=== PATIENT | male | born 1965 | race African-American/Black ===

== ENCOUNTER → 2020-06-22 | Outpatient (CLI) | payer OTHER ==
[2015-04-30 15:13] VITALS: BP 131/89
--- NOTE | 2020-06-22 10:14 | KCIC ---
Examination: HIP LEFT 2V WITH PELVIS History: Reason: Chronic Left hip pain, hurts to bear weight. / Spl. Instructions: / History: Comparison/Correlation: None Findings: Frontal view of the pelvis, frontal view of the left hip, and frog leg lateral view left hip were provided. Advanced left hip joint degenerative narrowing and remodeling is present. Significant remodeling of the left hip joint is present. Subchondral degenerative lucencies are present. Mild right hip joint subchondral sclerosis and degenerative change noted. Impression: Advanced left hip joint degenerative remodeling. The right hip joint degenerative subchondral change appears to be present along with mild sclerosis. No acute fracture or bone destruction suspected. Consider further imaging if occult fracture is a concern. Electronically signed by: Juliocesar Gutierrez MD (06/22/2020 10:11 AM) [id number]
== END ==
LOC: KCIC 09:28
PROVIDERS: ATTEND Family Medicine
DX: M16.12 Unilateral primary osteoarthritis, left hip (principal)
CPT/HCPCS: 73502

== ENCOUNTER → 2021-01-02 | Outpatient (CLI) | payer OTHER ==
[2015-04-30 15:13] VITALS: BP 131/89
[~2021-01-02] MED LIST: ATOR10TA60 PO; ELDE1CAP PO; HYDR-2761 PO; MULT-460 PO
[2021-01-02 09:07] LABS: BASO # 0.1 x10^3/uL (0.0-0.2); BASO % 1 % (0-3); EOS # 0.4 x10^3/uL (0.0-0.7); EOS % 6 % (0-3); HEMATOCRIT 44.2 % (39.0-53.0); HEMOGLOBIN 14.6 g/dL (13.0-17.5); LYMPH # 2.3 x10^3/uL (1.0-4.8); LYMPH % 35 % (24-48); MEAN CORPUSCULAR HEMOGLOBIN 30 pg (25-35); MEAN CORPUSCULAR HGB CONC 33 g/dL (31-37); MEAN CORPUSCULAR VOLUME 92 fL (79-100); MONO # 0.4 x10^3/uL (0.0-1.1); MONO % 7 % (0-9); NEUT # 3.4 x10^3/uL (1.8-7.7); NEUT % 52 % (31-73); PLATELET COUNT 191 x10^3/uL (140-400); RED BLOOD COUNT 4.82 x10^6/uL (4.30-5.70); WHITE BLOOD COUNT 6.6 x10^3/uL (4.0-11.0)
[2021-01-02 09:24] LABS: PROTHROMBIN TIME PATIENT 13.7 SEC (11.7-14.0)
[2021-01-02 09:26] LABS: ALBUMIN 3.8 g/dL (3.4-5.0); CALCIUM 8.9 mg/dL (8.5-10.1); CREATININE 1.1 mg/dL (0.7-1.3); GFR 83.8; POTASSIUM 4.7 mmol/L (3.5-5.1)
--- NOTE | 2021-01-02 12:07 | EKG ---
[facility] [address] [place] [address] Test Date: 2021-01-02 Test Time: 12:04:00 Pat Name: SEEMA IFNK Department: Room: Gender: Joiner Helper: JG : 1965 Requested By: PB KIM Order Number: [id number] Reading MD: Ricardo Reno MD Measurements Intervals [place] Rate: 78 P: 90 NE: 130 QRS: 112 QRSD: 86 T: 131 QT: 366 QTc: 421 Interpretive Statements SINUS RHYTHM RAD Electronically Signed On 01-03-2021 10:58:59 CDT by Ricardo Reno MD
--- NOTE | 2021-01-02 13:10 | RAD ---
Two-view chest dated 01/02/2021. Comparison made to 04/29/2015. FINDINGS: Hyperlipidemia. Preoperative evaluation for left hip surgery. FINDINGS: PA and lateral views obtained. Heart and mediastinal contours are stable. Lungs are clear. No consoli dation or pleural effusion. No pneumothorax. Lungs are somewhat hyperinflated. IMPRESSION: No acute findings. Electronically signed by: Jony Landaverde MD (01/02/2021 1:07 PM) [id number]
[2021-01-03 00:08] LABS: HEMOGLOBIN A1C 5.7 % (4.8-5.6)
== END ==
LOC: SURGPAT 13:29
PROVIDERS: ATTEND Orthopaedic Surgery
DX: Z01.818 Encounter for other preprocedural examination (principal); M16.12 Unilateral primary osteoarthritis, left hip; Z96.642 Presence of left artificial hip joint
CPT/HCPCS: 36415; 71046; 80048; 82040; 82306; 83036; 85025; 85610; 85651; 85730; 87641; 93005

== ENCOUNTER → 2021-01-13 | Outpatient (CLI) | payer OTHER ==
[2015-04-30 15:13] VITALS: BP 131/89
== END ==
LOC: LAB 11:01
PROVIDERS: ATTEND Orthopaedic Surgery
DX: Z01.812 Encounter for preprocedural laboratory examination (principal); M16.12 Unilateral primary osteoarthritis, left hip; Z96.642 Presence of left artificial hip joint; Z20.822 Contact with and (suspected) exposure to COVID-19
CPT/HCPCS: U0003; U0005

== ENCOUNTER → 2021-02-21 | Outpatient (CLI) | payer OTHER ==
[2021-01-04 11:17] VITALS: BP 132/86
[2021-02-21 13:06] LABS: BASO % 1 % (0-3); EOS # 0.3 x10^3/uL (0.0-0.7); EOS % 5 % (0-3); HEMATOCRIT 42.4 % (39.0-53.0); HEMOGLOBIN 14.2 g/dL (13.0-17.5); LYMPH # 1.9 x10^3/uL (1.0-4.8); LYMPH % 32 % (24-48); MEAN CORPUSCULAR HEMOGLOBIN 31 pg (25-35); MEAN CORPUSCULAR HGB CONC 34 g/dL (31-37); MEAN CORPUSCULAR VOLUME 92 fL (79-100); MONO # 0.4 x10^3/uL (0.0-1.1); MONO % 7 % (0-9); NEUT # 3.3 x10^3/uL (1.8-7.7); NEUT % 56 % (31-73); PLATELET COUNT 202 x10^3/uL (140-400); RED BLOOD COUNT 4.64 x10^6/uL (4.30-5.70); RED CELL DISTRIBUTION WIDTH 13.4 % (11.5-14.5); WHITE BLOOD COUNT 5.9 x10^3/uL (4.0-11.0)
[2021-02-21 13:15] LABS: PROTHROMBIN TIME PATIENT 13.2 SEC (11.7-14.0)
[2021-02-21 13:27] LABS: ALBUMIN 3.7 g/dL (3.4-5.0); ALBUMIN/GLOBULIN RATIO 1.2 (1.0-1.7); CALCIUM 8.7 mg/dL (8.5-10.1); CREATININE 1.1 mg/dL (0.7-1.3); GFR 83.8; POTASSIUM 4.1 mmol/L (3.5-5.1); TOTAL BILIRUBIN 0.4 mg/dL (0.2-1.0); TOTAL PROTEIN 6.7 g/dL (6.4-8.2)
[2021-02-22 03:10] LABS: HEMOGLOBIN A1C <4.2 % (4.8-5.6)
== END ==
LOC: SURGPAT 12:37
PROVIDERS: ATTEND Orthopaedic Surgery
DX: M16.12 Unilateral primary osteoarthritis, left hip (principal); Z01.818 Encounter for other preprocedural examination; Z96.642 Presence of left artificial hip joint
CPT/HCPCS: 36415; 80053; 82306; 83036; 85025; 85610; 85651; 85730; 87641

== ENCOUNTER → 2021-02-24 | Outpatient (CLI) | payer OTHER ==
[2021-01-04 11:17] VITALS: BP 132/86
[~2021-02-24] MED LIST changes: +TRAM50TA PO; +WARF-31 PO
== END ==
LOC: LAB 10:04
PROVIDERS: ATTEND Orthopaedic Surgery
DX: M16.12 Unilateral primary osteoarthritis, left hip (principal); Z01.812 Encounter for preprocedural laboratory examination; Z20.822 Contact with and (suspected) exposure to COVID-19
CPT/HCPCS: U0003

== ENCOUNTER 2021-02-28 07:42 | Observation (INO) | payer OTHER ==
[2021-02-21 13:09] VITALS: BP 140/76
[2021-02-28] VITALS (7 sets, daily range): BP systolic 113–157; BP diastolic 67–94
[~2021-02-28] VITALS: Ht 176.5 cm; Wt 72.7 kg
[~2021-02-28 07:42] MED LIST changes: +ACETAMINOPHEN 500 MG TABLET PO PRN; +DEXAMETHASONE SOD PHOS 4 MG/ML VIAL ONE; +GABAPENTIN 300 MG CAPSULE. PO PRN; +HYDROmorphone 2 MG/ML INJ. IVP PRN; +LIDOCAINE 1% PF 5 ML VIAL. ONE; +MELOXICAM 7.5 MG TABLET PO PRN; +MIDAZOLAM HCL/PF 2 MG/2 ML VIAL. ONE; +MORPHINE SULFATE 2 MG/ML INJ. IVP PRN; +MORPHINE SULFATE 5 MG, KETOROLAC 30MG VIAL 30 MG, ROPIVacaine 0.5% PF 60 ML, EPINEPHrin... INT ART ONE; +ONDANSETRON PF 4 MG/2 ML VIAL. ONE; +PROCHLORPERAZINE 10 MG/2 ML VIAL. IVP PRN; +PROPOFOL 10 MG/ML (20ML) VIAL. IV ONE; -TRAM50TA PO; +TRANEXAMIC ACID in NS IVPB 100 ML ONE; +TRANEXAMIC ACID in NS IVPB 50 ML INJ ONE; -WARF-31 PO; +fentaNYL PF VIAL 100 MCG/2 ML VIAL IVP PRN; +fentaNYL PF VIAL 100 MCG/2 ML VIAL ONE
[2021-02-28] MEDS ORDERED: TRANEXAMIC ACID in NS IVPB 50 ML INJ ONE (08:00)
[2021-02-28] MEDS ORDERED: CALCIUM CARBONATE 500 MG TAB.CHEW PO PRN (08:00)
[2021-02-28] MEDS ORDERED: ZOLPIDEM 5 MG TABLET. PO PRN (08:00)
[2021-02-28] MEDS ORDERED: diphenhydrAMINE 50 MG/ML VIAL IVP PRN (08:00)
[2021-02-28] MEDS ORDERED: PROCHLORPERAZINE 5 MG TABLET. PO PRN (08:00)
[2021-02-28] MEDS ORDERED: fentaNYL PF VIAL 100 MCG/2 ML VIAL IVP PRN (08:00)
[2021-02-28] MEDS ORDERED: DEXTROSE 50% 25 GM / 50ML DISP.SYRIN. IV PRN (08:00)
[2021-02-28] MEDS ORDERED: 0.9 % SODIUM CHLORIDE 10 ML DISP.SYRIN. IV PRN (08:00)
[2021-02-28] MEDS ORDERED: MORPHINE SULFATE 2 MG/ML INJ. IVP PRN (08:00)
[2021-02-28] MEDS ORDERED: IV NORMAL SALINE 1000ML BAG 1,000 ML IV SCH (08:00)
--- NOTE | 2021-02-28 08:07 | PDOC4 ---
Operative Note Operative Note Date of surgery: 02/28/2021 Preoperative diagnosis: Degenerative joint disease left hip Postoperative diagnosis: Same Operative procedure: Left total hip arthroplasty with anterior approach Surgeon Anu Scientific Process Operator: Antonio hernandez Anesthesia: General Estimated blood loss: 250 cc Complications: None Drains: None Operative indications: Please see my orthopedic clinic note and dictated history and physical for detailed operative indications and note that we covered risks benefits postoperative course of the procedure. We specifically discussed the possibility of infection leg length inequality, nerve or blood vessel damage premature wear or loosening medical or other anesthetic complications among others. All his questions were answered and he wishes to proceed with surgical evaluation and treatment having given informed consent Operative text: Patient was identified procedure verified patient placed in the supine position on the Cisco fracture table after adequate amounts of general anesthesia were administered. All bony prominences were well-padded and left hip was prepped and draped in the standard sterile fashion. After timeout was performed patient procedure identified and verified an incision was made just distal to the anterior superior iliac spine running along the tensor fascia pancho for a distance of about 4 inches. Fascia was incised tensor fascia pancho was taken laterally and circumflex vessels were located and coagulated and the anterior capsule was exposed with the rectus femoris gently retracted medially along with the underlying fascia that was dissected free. Capsule was split in a T-shaped incision and superior aspect of the capsule was excised and further superior release was carried out with the hip in external rotation. Hip was returned to 40 degrees external rotation and a napkin ring cut was made with an Avenir Angus broach for reference napkin ring was removed and femoral head was removed and sized. Reaming was carried out to a size 59 with a size 60 Biomet G7 acetabular shell was placed in proper version under fluoroscopic guidance and excellent scratch fit was noted. A 40 mm vitamin E liner was impacted into place. Femur was brought into maximum external rotation extension and adduction and release was carried out at the 11 o'clock position to free up the femur and retractors were placed medially and above the greater trochanter for maximum femoral exposure box osteotome was used along with the rattail rasp and successive size broaching up to a size 6.5 which provided excellent stability and fit within the canal. Calcar reaming was carried out and trial fitting with a -3.5 40 mm head to reproduce leg length and offset appropriately under fluoroscopic guidance. Trial components were removed and a size 6.5 standard offset collared Avenir stem was impacted into place with a -3.5 ceramic 40 mm head. Excellent stability and range of motion were noted and leg length and offset were reproduced closely according to preoperative measurements and measurements from the contralateral side, noting that the leg length could not be further decreased. Thorough irrigation carried out with normal saline solution and pulse lavage. Intra-articular mixture was injected subperiosteally throughout the joint capsule and subcutaneous areas and 1 g vancomycin sprinkled throughout the joint capsule area. Fascia was closed with #1 PDS strata fix suture in a running fashion subcutaneous closure with buried Vicryl skin closure with subcuticular Monocryl and a paul dressing was applied. Patient was returned to recovery room in stable condition having tolerated the procedure well. Antonio hernandez was present for the procedure and assisted in the patient positioning prepping draping retraction closure and dressings PB KIM MD Feb 28, 2021 08:07
[2021-02-28] MEDS: IV RINGERS,LACTATED 1000ML 1,000 ML IV SCH ×2 (08:09→10:44)
--- NOTE | 2021-02-28 08:10 | PREOP HP ---
DATE OF SERVICE: 02/28/2021 PREOPERATIVE HISTORY AND PHYSICAL CHIEF COMPLAINT: Left hip pain. HISTORY OF PRESENT ILLNESS: The patient is a very active 55-year-old male with left hip pain ongoing worsening over the past 10 years, very severe over the past several months. 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 PAST MEDICAL HISTORY: Significant for cataracts and the left hip pain. PAST SURGICAL HISTORY: Cataract surgery in 2018 and nerve operation in 2002. FAMILY HISTORY: Both mother and father in old age due to cancer and some heart disease in his dad as well. Two brothers at ages 54 and 58 with heart attack. SOCIAL HISTORY: He was a previous smoker, quit smoking recently in anticipation of procedure. Denies alcohol or drug use. MEDICATIONS: Include atorvastatin, Vascepa, meloxicam, which he held and oxaprozin. ALLERGIES: He has no known drug allergies. REVIEW OF SYSTEMS: Denies any chest pain, shortness of breath, recent febrile illness or other constitutional symptoms. PHYSICAL EXAMINATION: VITAL SIGNS: Per admission sheet. HEENT: Atraumatic, normocephalic. HEART: Regular rate and rhythm. LUNGS: Clear to auscultation bilaterally. ABDOMEN: Benign. EXTREMITIES: On examination of the left hip, he has decreased range of motion of the left hip in all planes compared to the right, which only has a mild motion deficit. He has normal motion, stability, alignment, bilateral knees and ankles and an antalgic gait. LABORATORY DATA: X-rays show bone on bone degenerative change in the left hip with significant distortion of the femoral head. IMPRESSION: Degenerative left hip. TREATMENT PLAN: I have previously gone over with him risks, benefits, postoperative course of the total hip arthroplasty including the possibility of nerve or blood vessel damage, medical or other anesthetic complications, infection, leg length inequality, instability, among others. All his questions were answered. He wishes to proceed with surgical evaluation and treatment to include joint center observation to follow. NABEEL DR: Rosario TID: [id number]
[2021-02-28 08:20] LABS: PROTHROMBIN TIME PATIENT 13.6 SEC (11.7-14.0)
[2021-02-28] MEDS ORDERED: VANCOMYCIN 1 GM VIAL. ONE (08:34)
[2021-02-28] MEDS ORDERED: fentaNYL PF VIAL 100 MCG/2 ML VIAL ONE ×2 (09:11→10:51)
[2021-02-28] MEDS ORDERED: MORPHINE SULFATE 2 MG/ML INJ. ONE (10:41)
[2021-02-28] MEDS ORDERED: PROCHLORPERAZINE 10 MG/2 ML VIAL. ONE (10:49)
[2021-02-28] MEDS: fentaNYL PF VIAL 100 MCG/2 ML VIAL IVP PRN ×2 (10:54→12:01)
[2021-02-28] MEDS: ONDANSETRON ODT 4 MG TAB.RAPDIS. PO SCH ×2 (12:00→18:00)
--- NOTE | 2021-02-28 12:15 | NUR ---
Arrived to unit by bed from from PACU. Awakens easily but falls back to sleep. Left hip LOREE dressing d/i with ice pack. Pedal pulses + bilaterally, warm touch and wiggles toes easily. IVF's intact and infusing. O2 at 2l per n/c. LAI's and SCD's on bilaterally. Side rails up x's 2 with call light in reach. Cont. monitor.
[2021-02-28] MEDS: ONDANSETRON PF 4 MG/2 ML VIAL. IVP SCH ×2 (13:02→17:10)
[2021-02-28] MEDS: ceFAZolin SODIUM IV Push 1 GM VIAL. IVP SCH ×2 (14:15→21:06)
[2021-02-28] MEDS ORDERED: WARFARIN 7.5 MG TABLET. PO ONE (16:00)
[2021-02-28] MEDS: FERROUS SULFATE 325 MG TABLET. PO SCH (17:11)
[2021-02-28] MEDS: oxyCODONE IR 5 MG TABLET PO PRN (17:11)
[2021-02-28] MEDS: ATORVASTATIN CALCIUM 10 MG TABLET. PO SCH (21:05)
[2021-03-01 03:10] VITALS: BP 122/84
[2021-03-01] MEDS: ceFAZolin SODIUM IV Push 1 GM VIAL. IVP SCH (03:22)
[2021-03-01 05:19] LABS: PROTHROMBIN TIME PATIENT 16.5 SEC (11.7-14.0)
[2021-03-01 05:33] LABS: HEMATOCRIT 36.1 % (39.0-53.0); HEMOGLOBIN 12.2 g/dL (13.0-17.5)
[2021-03-01] MEDS: ONDANSETRON ODT 4 MG TAB.RAPDIS. PO SCH ×2 (05:53)
[2021-03-01] MEDS: ONDANSETRON PF 4 MG/2 ML VIAL. IVP SCH ×2 (05:53)
[2021-03-01] MEDS: GABAPENTIN 100 MG CAPSULE. PO SCH ×2 (06:00→12:45)
[2021-03-01] MEDS ORDERED: MAGNESIUM HYDROXIDE 2,400 MG/30 ML ORAL.SUSP. PO PRN (06:00)
[2021-03-01 06:08] VITALS: BP 144/83
[2021-03-01] MEDS: traMADol 50 MG TABLET PO SCH ×3 (06:18→16:50)
[2021-03-01] MEDS: ACETAMINOPHEN 500 MG TABLET PO SCH ×3 (07:55→21:30)
[2021-03-01] MEDS: MELOXICAM 7.5 MG TABLET PO SCH (07:55)
[2021-03-01] MEDS: MULTIVITAMIN with MINERAL TABLET. PO SCH (07:55)
[2021-03-01] MEDS: oxyCODONE IR 5 MG TABLET PO PRN ×2 (07:56→21:31)
[2021-03-01] MEDS: FERROUS SULFATE 325 MG TABLET. PO SCH ×2 (07:56→16:50)
[2021-03-01] MEDS ORDERED: ONDANSETRON PF 4 MG/2 ML VIAL. IVP PRN (12:00)
[2021-03-01] MEDS ORDERED: ONDANSETRON ODT 4 MG TAB.RAPDIS. PO PRN (12:00)
--- NOTE | 2021-03-01 13:00 | NUR ---
Pharmacy Warfarin Dosing Note S: Pharmacy consulted to assist with anticoagulation therapy started 02/28/21 O: SEEMA FINK is a 55 year old M with RAEGAN LABS: Last INR: 1.3 Last HGB: 12.2 Last HCT: 36.1 Last dose of 7.5 mg given on 02/28/21 at 1715 Ongoing Drug Interactions: MOBIC A:INR of 1.3 is below desired range. Target range for this patient is: 1.6 - 2.5 P: Warfarin dose: 5 mg Today at 1600 Bridge Therapy: None Next INR due 03/02/21 AM Pharmacy anticoagulation service will continue to follow. BRENDON BEDOYA RPH, 03/01/21 1300
[2021-03-01] MEDS ORDERED: BISACODYL 10 MG SUPP.RECT. PR PRN (16:00)
[2021-03-01] MEDS ORDERED: WARFARIN 5 MG TABLET. PO ONE (16:00)
--- NOTE | 2021-03-01 20:34 | PDOC ---
PROGRESS NOTES Date of Service DATE: 03/01/21 TIME: 20:30 Subjective Subjective Problems overnight: Left hip is a bit sore but getting up and around well Objective Vital Signs Vital Signs Date Time Temp Pulse Resp B/P (MAP) Pulse Ox O2 Delivery O2 Flow Rate FiO2 03/01/21 17:20 100 Room Air 03/01/21 08:26 2.0 03/01/21 06:18 16 03/01/21 06:08 98.8 93 144/83 (103) 98.8 Physical Exam Flavio dressing clean dry intact leg lengths intact distal neurovascular status intact Labs Laboratory Tests Test 02/28/21 07:30 03/01/21 04:55 Prothrombin Time 13.6 SEC (11.7-14.0) 16.5 SEC (11.7-14.0) Prothromb Time International Ratio 1.0 (0.8-1.1) 1.3 (0.8-1.1) Activated Partial Thromboplast Time 31 SEC (24-38) Hemoglobin 12.2 g/dL (13.0-17.5) Hematocrit 36.1 % (39.0-53.0) Mean Corpuscular Hemoglobin Concent 34 g/dL (31-37) Laboratory Tests Test 03/01/21 04:55 Hemoglobin 12.2 g/dL (13.0-17.5) Hematocrit 36.1 % (39.0-53.0) Mean Corpuscular Hemoglobin Concent 34 g/dL (31-37) Prothrombin Time 16.5 SEC (11.7-14.0) Prothromb Time International Ratio 1.3 (0.8-1.1) Imaging Intra-Op fluoroscopy views show excellent leg length matching and component sizing total hip arthroplasty Assessment Assessment POD#1 left total hip arthroplasty Plan Plan of Care Continue mobilize with physical therapy, plan home health on discharge Warfarin anticoagulation per [facility] Justicifation of Admission Dx: Justifications for Admission: Justification of Admission Dx: N/A PB KIM MD Mar 01, 2021 20:34
--- NOTE | 2021-03-01 20:40 | SNU/HH DC ---
DISCHARGE WITH HOME HEALTH DISCHARGE INFORMATION: Discharge Date: Mar 02, 2021 Final Diagnosis: Status post left total hip arthroplasty Condition on Discharge: Stable CODE STATUS: Code Status: Full HOME HEALTH: Face to Face: I certify this patient is under my care and that I, or a nurse practitioner or physician's assistant teaching professor working with me, had a face to face encounter that meets the physician face to face encounter requirements with this patient on [03/01/21]. Medical Complications: S/P Joint Replacement Snf For: Assess/Skilled Observatio RN For Eval/Treatment: Yes Physical Therapy For: Evalulation/Treatment Pt Meets Homebound Status: Limited distance walking POST DISCHARGE ORDERS: Activity Instructions for Disc: Progressive ambulation DIET AFTER DISCHARGE: Regular Wound/Incision Care: Ice to area for comfort, Do not change dressing (Maintain paul dressing call if saturated, otherwise when suction machine stops, discard and cut tail of dressing and tape over to maintain seal) FOLLOW-UP: Follow up with: Dr. Brennan or Garth 2 weeks postop Warfarin Follow UP: [facility] for dosage and testing CERTIFICATION STATEMENT: Certification Statement: Certification Statement: Based on the above finding, I certify that this patient is confined to the home and needs intermittent penitentiary care, physical therapy and/or speech therapy, or continues to need occupational therapy.~ This patient is under my care, and I have initiated the establishment of the plan of care.~ This patient will be followed by myself or a community physician who will periodically review the plan of care. Home Meds Reported Medications Atorvastatin Calcium (ATORVASTATIN CALCIUM) 10 Mg Tablet, 10 MG PO DAILY for FOR CHOLESTEROL, #30 TAB 0 Refills 01/04/21 PB BRENNAN MD Mar 01, 2021 20:40
[2021-03-01] MEDS: ATORVASTATIN CALCIUM 10 MG TABLET. PO SCH ×2 (21:00→21:30)
[2021-03-02] MEDS: ACETAMINOPHEN 500 MG TABLET PO SCH ×3 (03:00→15:20)
[2021-03-02 04:57] LABS: PROTHROMBIN TIME PATIENT 18.5 SEC (11.7-14.0)
[2021-03-02 06:03] VITALS: BP 116/77
[2021-03-02] MEDS: traMADol 50 MG TABLET PO SCH ×3 (06:12→12:17)
[2021-03-02 07:51] LABS: HEMATOCRIT 33.8 % (39.0-53.0); HEMOGLOBIN 11.4 g/dL (13.0-17.5)
[2021-03-02] MEDS: oxyCODONE IR 5 MG TABLET PO PRN ×2 (08:08→15:20)
[2021-03-02] MEDS: FERROUS SULFATE 325 MG TABLET. PO SCH (08:09)
[2021-03-02] MEDS: MULTIVITAMIN with MINERAL TABLET. PO SCH (08:09)
[2021-03-02] MEDS: MELOXICAM 7.5 MG TABLET PO SCH (08:09)
[2021-03-02] MEDS ORDERED: WARF-31 PO (12:54)
[2021-03-02] MEDS ORDERED: WARFARIN 5 MG TABLET. PO ONE (13:00)
--- NOTE | 2021-03-02 13:47 | NUR ---
Pharmacy Warfarin Dosing Note S: Pharmacy consulted to assist with anticoagulation therapy started 02/28/21 O: SEEMA FINK is a 55 year old M with RAEGAN LABS: Last INR: 1.6 Last HGB: 11.4 Last HCT: 33.8 Last PLT: - Last dose of 5 mg given on 03/01/21 at 1538 Vitamin K given: N Ongoing Drug Interactions: MOBIC A:INR of 1.6 is within desired range. Target range for this patient is: 1.6 - 2.5 P: Warfarin dose: 5 mg Today at 1600 Bridge Therapy: None Next INR due Saturday03/06/21 Outpatient pharmacy anticoagulation service will continue to follow. CHRISS HEREDIA [facility], 03/02/21 2821
[2021-03-02] MEDS ORDERED: TRAM50TA PO (14:04)
--- NOTE | 2021-03-02 16:15 | NUR ---
Patient left around 1615 with his son. Discharge education completed by this nurse, therapy, pharmacy, and the doctor prior to discharge. LOREE CDI. IV discontinued earlier today without complications. Patient left with all his belongings. Pharmacy gave patient his Coumadin pills and education in detail prior to discharge. No concerns at dismissal.
--- NOTE | 2021-03-03 21:16 | DS ---
DATE OF DISCHARGE: 03/02/2021 CHIEF COMPLAINT: Osteoarthritis of left hip. PROCEDURE: Include left total hip arthroplasty. DISPOSITION: Home with home health. DISPOSITION MEDICATIONS: Include tramadol 50 mg p.o. q. 4 hours p.r.n. pain, warfarin as directed by Anticoagulation Clinic. Otherwise resume preoperative medications. DISCHARGE INSTRUCTIONS: Activity is weightbearing as tolerated. Avoid extremes of hip motion. Maintain LOREE dressing, call if saturated. Remove suction machine when it quits working at 1 week postoperatively approximately, discard and cut tail of dressing and tape over to maintain seal. Follow up with Dr. Brennan or Garth 2 weeks postoperatively. BRIEF DESCRIPTION OF HOSPITAL COURSE: The patient underwent uncomplicated total hip arthroplasty. Postoperatively, he had some expected soreness, but was getting up and around very well, performed satisfactorily in terms of his ambulation and transfers and was discharged home in stable condition. HARSH[place]NAT[place] DR: Rosario TID: [id number]
== END 2021-03-02 16:20 | disposition home health service (06) ==
LOC: SURG 07:42 → 4 SOUTHEST 10:52
PROVIDERS: ADMIT Orthopaedic Surgery; ATTEND Orthopaedic Surgery
DX: M16.12 Unilateral primary osteoarthritis, left hip (principal); Z87.891 Personal history of nicotine dependence; Z96.642 Presence of left artificial hip joint
CPT/HCPCS: 27130; 36415; 85014; 85018; 85610; 85730; 86850; 86900; 86901; 96361; 96374; 96375; 96376; 97116; 97150; 97162; 97165; 97530; 97535; A4213; A4930; A6223; A6258; A6402; A6550; C1755; C1776; G0378; G0379; J0171; J0690; J0780; J1100; J1885; J2250; J2270; J2405; J2704; J2795; J3010; J3370; J3490; J7030; 76000; 88304; 88311; A4223